=== PATIENT | female | born 1930 | race Caucasian/White ===

== ENCOUNTER 2019-04-10 16:56 | Inpatient (IN) ==
--- NOTE | 2019-04-10 17:18 | Emergency Department Note ---
ED Disposition Clinical Impression: Skin tear Pelvic fracture Qualifiers: Encounter type: initial encounter Pelvic bone location: unspecified part of pelvis Fracture type: closed Fracture alignment: displaced Qualified Code(s): S32.9XXA - Fracture of unspecified parts of lumbosacral spine and pelvis, initial encounter for closed fracture Sacral fracture Qualifiers: Encounter type: initial encounter Zone of sacrum fracture: unspecified portion of sacrum Fracture type: closed Qualified Code(s): S32.10XA - Unspecified fracture of sacrum, initial encounter for closed fracture Contusion of left hip Qualifiers: Encounter type: initial encounter Qualified Code(s): S70.02XA - Contusion of left hip, initial encounter Traumatic hematoma of forehead Qualifiers: Encounter type: initial encounter Qualified Code(s): S00.83XA - Contusion of other part of head, initial encounter Disposition: Admitted as Observation Condition on Discharge: Fair Referrals: Wilmar Ibarra MD [Primary Care Provider] - - Critical Care Critical Care Time: No Attestation: On 04/10/19, the high probability of a clinically significant, sudden or life threatening deterioration of the following system(s) required my full and direct attention, intervention and personal management. The time I documented below is in addition to time spent performing reported procedures but includes the following listed in this critical care notation. Medical Decision Making - Jimmy Inquiry Pt receiving controlled substance: Yes Jimmy was queried for this patient: No Reason not queried -: Emergent pt cond-no time Risks and benefits of using a controlled substance: were not discussed with pt by me Vital Signs: 04/10/19 16:57 Temperature 98.3 F Temperature Source Oral Pulse Rate [Right Radial] 67 Respiratory Rate 16 Blood Pressure [Right Arm] 114/73 Blood Pressure Mean [Right Arm] 86 Blood Pressure Source [Right Arm] Automatic Cuff Blood Pressure Position [Right Arm] Sitting 02 Sat by Pulse Oximetry 97 Oxygen Delivery Method Room Air Orders (Tests/Meds): ED MEDICATIONS Discontinued Medications Generic Name Dose Route Start Last Admin Trade Name Freq PRN Reason Stop Dose Admin Morphine Sulfate 1 mg 04/10/19 20:31 Morphine 4mg/Ml Syringe IV 04/10/19 20:32 ONCE ONE Ondansetron HCl 4 mg 04/10/19 20:31 Zofran 4mg/2ml Vial IV 04/10/19 20:32 ONCE ONE ORDERS Category Date Time Status CT hip LT wo con Stat Cat Scan 04/10/19 18:16 Taken XR chest portable Stat Exams 04/10/19 20:31 Ordered Complete Blood Count Auto Diff Stat Lab 04/10/19 20:30 Ordered Comprehensive Metabolic Panel Stat Lab 04/10/19 20:30 Ordered Urinalysis and Microscopic Stat Lab 04/10/19 20:30 Ordered - Radiology Data #1 Image(s): Hip Image Reviewed: Yes I reviewed the patient's radiology image Preliminary Findings: Normal/NAD - CT Data CT Scan: Head, C-Spine Time Received: 18:[address] Reviewed: Yes: I have viewed the radiologist's interpretation Findings Narrative: Head: FINDINGS: No midline shift, mass effect, intracranial hemorrhage, hydrocephalus, or extra-axial fluid collection is evident. The basilar cisterns are prominent. 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 The sylvian fissures and cortical sulci are prominent. There are mild diffuse periventricular hypodensities consistent with chronic ischemic white matter changes. The base of skull is normal. The bony calvarium appears intact with evidence of mild hyperostosis frontalis interna. There is a focal hematoma of the scalp left frontal parietal region measuring 3.6 by 1.1 cm. The bony calvarium is intact with no evidence of skull fracture. IMPRESSION: Findings are prominent but likely age-appropriate cortical atrophy along with mild chronic ischemic white matter changes, focal scalp hematoma is noted, no acute intracranial pathology identified. Dictated by: Dr. Jg Del Angel MD 04/10/2019 17:[address] Jg Del Angel MD in [place] 04/10/2019 17:30 c-spine: FINDINGS: There is straightening of normal curvature suggesting muscle spasm. There is disc space narrowing at the C4-5, C5-6 and C6-7 levels. There is no acute fracture or subluxation. There is mild narrowing of the neural foramina bilaterally at the C5-6 level secondary to a degenerate changes. 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 The prevertebral soft tissues are normal. IMPRESSION: Possible muscle spasm, multilevel degenerate changes mid cervical spine, no acute pathology noted Dictated by: Dr. Jg Del Angel MD 04/10/2019 17:[address] Jg Del Angel MD in [place] 04/10/2019 17:35 - Physician Consults Physician Consulted: Dr. Wills Time: 20:20 Reason -: Admission Comment/Response: Agrees to admit the patient to the hospital. We discussed the patient's clinical information, including history, exam, laboratory and radiology results and ED course. Per hospital procedure, I will write temporary bridge inpatient orders on the patient. Specific orders requested by the admitting physician: Morphine 1 mg every 4 hours as needed, orthopedic consultation for the morning. General Adult HPI - General Chief complaint: Fall Stated complaint: FALL Time Seen by Provider: 04/10/19 17:18 Mode of Arrival: EMS Limitations: No Limitations Description of Symptoms (Recalled from ER Triage Doc. by RN): PT FELL ON THE LAST STEP GOING INTO THE BASEMENT AT HOME. PT PRESENTS WITH A KNOT TO LT SIDE OF HEAD, SKIN TEAR TO LT ELBOW, AND C/O LT HIP PAIN. PT IS ABLE TO WEAR WEIGHT ON LT LEG AND MOVE HIP. PT DENIES FUNG, LOC, DIZZINESS, N/V - History of Present Illness HPI narrative: Patient says she fell on the last step going down into the basement. Landed on her left side. She has a bump on her head. Denies any pain in that area or headache. Denies loss of consciousness. Denies neck pain. Has a skin tear on her left elbow which has Steri-Strips on it. She has no pain in her elbow and can move it without discomfort. She has left hip pain and says she could not bear weight at home. Pain is in her groin. Denies any injury to chest or abdomen or back. - Related Data Home Medications Medication Instructions Recorded Confirmed lisinopril 20 mg tablet 20 mg PO DAILY tab 09/01/17 04/10/19 Nebivolol HCl [Bystolic] 10 mg PO DAILY 04/10/19 04/10/19 Allergies Allergy/AdvReac Type Severity Reaction Status Date / Time No Known Allergies Allergy Verified 04/08/18 11:25 [facility] History - Hepatitis A Screen Drug use history?: No High risk sexual behaviors?: No History of sexually transmitted infection?: No Currently employed?: No Childcare worker?: No Do you have indoor plumbing?: Yes Do you have electricity?: Yes Attestation statement:: This patient has been screened for Hepatitis A risk factors. I have reviewed the patient's past medical history: Yes Medical History: Reports:: Hypertension, Internal Pacemaker Denies:: Cancer, Diabetes Mellitus Type 1, Diabetes Mellitus Type 2, MRSA Other Medical History: Reports: Cataracts Laterality Cases: Bilateral: Tonsillectomy Other Surgeries: Yes: Cholecystectomy, Pacemaker Amputation: No Fractures: No Comment: cholecystectomy - Social History Smoking Status: Never smoker Alcohol Intake: never Alcohol Intake Frequency:: other Occupational Status: retired Family Hx:: No significant family history ROS Obtained: Yes Systems reviewed as appropriate & no additional complaints - Eyes Eyes: Denies change in vision - Cardiovascular Cardiovascular: Denies chest pain - Respiratory Respiratory: No dyspnea - Gastrointestinal Gastrointestingal: Denies: abdominal pain, vomiting - Musculoskeletal Musculoskeletal: Reports as per HPI, Reports joint pain, Denies back pain, Denies neck pain, Denies numbness - Neurologic Neurologic: Denies headache(s), Denies numbness, Denies weakness Physical Exam - General General appearance: alert, in no apparent distress - Expanded Head Exam Head exam physical: Present: hematoma (Left frontal). Absent: laceration, Fan's sign, CSF rhinorrhea - Eye Eye exam: Present: normal appearance, PERRL, EOMI - ENT ENT exam: Present: TM's normal bilaterally - Neck Neck exam: Present: normal inspection, full ROM, trachea midline. Absent: tenderness - Chest Chest inspection: Present: normal inspection, symmetric chest wall rise. Absent: tenderness - Respiratory Respiratory exam: Present: normal lung sounds bilaterally. Absent: respiratory distress - Cardiovascular Cardiovascular exam: Present: regular rate, normal rhythm, normal heart sounds - Abdominal Exam Abdominal exam: Present: soft, normal bowel sounds. Absent: distention, tenderness - Extremities Exam Extremities exam: Present: normal capillary refill - Neurological Exam Neurological exam: Present: alert, oriented X3, CN II-XII intact. Absent: motor sensory deficit - Psychiatric Psychiatric exam: Present: normal affect, normal mood - Skin Skin exam: Present: warm, dry - Other Other exam information: Skin tear left elbow which has Steri-Strips in place and is well approximated without active bleeding. Normal range of motion of left elbow without pain. No deformity. Normal neurovascular status. Redness of left hip laterally and in the inguinal area. No deformity, shortening, malrotation. Good range of motion. Appears to have mild pain with internal and external rotation. Distal neurovascular status intact.
[2019-04-10 20:35] LABS: Microscopic, Urine URINE MICROSCOPIC (MICROSCOPIC)
[2019-04-10 20:40] LABS: Appearance,Urine CLEAR (Clear); Bilirubin,Urine Negative (Negative); Blood, Urine Negative (Negative); Color,Urine YELLOW (Yellow); Glucose,Urine (UA) Negative (Negative); Ketones,Urine Negative (Negative); Leukocyte Esterase,Urine Negative (Negative); Protein,Urine Negative (Negative); Specific Gravity, Urine 1.015 (1.005-1.030); Urobilinogen,Urine 0.2 EU/dl (0.2)
[2019-04-10 20:41] LABS: Amorphous Sediment,Urine Trace /lpf; Squamous Epithelial Cell,Urine Occasional #/hpf (0-5)
[2019-04-10 21:20] LABS: Basophils % 0.2 % (0.1-2.0); Eosinophils % 0.2 % (0.1-12.0); Hematocrit 31.7 % (37.0-47.0); Hemoglobin 10.2 g/dL (12.2-16.2); Lymphocytes # 0.8 K/mm3 (0.7-4.5); Lymphocytes % 7.5 % (10-50); Mean Corpuscular Volume 97.3 fl (81-99); Monocytes # 0.6 K/mm3 (0.1-1.0); Monocytes % 5.9 % (1.7-9.3); Neutrophils # 8.5 K/mm3 (1.8-7.8); Neutrophils % 86.2 % (37.0-80.0); Platelet Count 178 K/mm3 (142-424); Red Blood Count 3.26 M/mm3 (4.20-5.40); Red Cell Distribution Width 13.5 % (11.5-17.5); White Blood Count 9.9 K/mm3 (4.8-10.8)
[2019-04-10 21:36] LABS: Anion Gap 12.1 mEq/L (5-15); Bilirubin,Total 0.4 mg/dL (0.2-1.0); Calcium 8.6 mg/dL (8.5-10.1)
[2019-04-10 21:40] LABS: Lymphocytes % 8 % (10-50); Neutrophils % 86 % (42-76); RBC Morphology Normal; Total Cells Counted 100
--- NOTE | 2019-04-11 07:09 | Pharmacy Consult Notes ---
[facility] Pharmacy VTE Monitoring - Patient Demographics Admission date: 04/10/19 Report Date: 04/11/19 Time: 07:08 Allergies/Adverse Reactions: Patient Allergies No Known Allergies Allergy (Verified 04/10/19 22:37) Height: 1.63 m Weight: 51.001 kg Patient Problems: Current Active Problems Pelvic fracture (Acute) Sacral fracture (Acute) Contusion of left hip (Acute) Traumatic hematoma of forehead (Acute) Skin tear (Acute) - VTE Risk Labs: VTE Related Lab Results Hgb 10.2 g/dL (12.2-16.2) L 04/10/19 21:05 Hct 31.7 % (37.0-47.0) L 04/10/19 21:05 Plt Count 178 K/mm3 (142-424) 04/10/19 21:05 BUN 37 mg/dL (7-18) H 04/10/19 21:05 Creatinine 1.26 mg/dL (0.55-1.02) H 04/10/19 21:05 Estimated Creat Clear 25 mL/min (50-200) 04/10/19 21:05 Was VTE Risk Assessment Performed: Yes VTE Score: 5 VTE Risk Level: Low Risk - Prophylaxis VTE Prophylaxis Ordered?: Yes Types of VTE Prophylaxis: TEDS Knee High Location of Applied Device: Bilateral Lower Extremeties - VTE Diagnosis Confirmed Treatment or plan recommended: Continue Current Treatment
--- NOTE | 2019-04-11 08:25 | History & Physical Report ---
*Admission Date: 04/10/19 *Chief complaint: Fall with left hip pain *History of present illness: 89-year-old white female who suffers from hypertension and has a previous history of falls fell on the day of admission at her home and struck her left elbow, left hip and left side of her head. Brought to the emergency department. Head CT was negative, mental status was preserved, elbow was unremarkable on exam but preliminary x-rays and CT of the hip shows comminuted pelvic fracture and evidence of sacral fracture. Admitted to hospital for pain control, orthopedic consultation and physical therapy evaluation. This morning she feels good except for cramps across her anterior lower pelvis. [facility] History I have reviewed the patient's past medical history: Yes Medical History: Reports:: Arrhythmia (sss), Hypertension, Internal Pacemaker Denies:: Cancer, Diabetes Mellitus Type 1, Diabetes Mellitus Type 2, MRSA *Have you ever received a pneumonia vaccine?: No *Have you received a flu vaccine this season?: No Other Medical History: Reports: Cataracts Laterality Cases: Bilateral: Tonsillectomy Other Surgeries: Yes: Appendectomy, Cholecystectomy, Pacemaker Amputation: No Fractures: No - *Social History Educational Level: Completed High School Smoking Status: Never smoker Alcohol Intake: never Alcohol Intake Frequency:: other *Occupational Status:: retired Housing: house *Travel in the last 8 weeks: Inside the [place] Family Hx:: No significant family history Review of Systems - Review of Systems Review of systems:: pertinent systems reviewed and negative unless documented below See HPI for details of ROS, Otherwise 10 point review of systems negative - *Neurologic Denies headache(s), Denies numbness, Denies weakness Meds Home Medications Medication Instructions Recorded Confirmed Type lisinopril 20 mg tablet 20 mg PO DAILY tab 09/01/17 04/10/19 History Nebivolol HCl [Bystolic] 10 mg PO HS 04/10/19 04/10/19 History Allergies Allergy/AdvReac Type Severity Reaction Status Date / Time No Known Allergies Allergy Verified 04/10/19 22:37 Exam Vital signs and Labs for Last 24 Hours: Temp Pulse Resp BP Pulse Ox 98.6 F 55 L 20 153/62 H 94 L 04/11/19 08:00 04/11/19 08:00 04/11/19 08:00 04/11/19 08:00 04/11/19 08:00 Laboratory Results - last 24 hr 12/01/19 20:10: Urine Color Yellow, Urine Appearance Clear, Urine pH 7.0, Ur Specific [place] 1.015, Urine Protein Negative, Urine Glucose (UA) Negative, Urine Ketones Negative, Urine Blood Negative, Urine Nitrate Negative, Urine Bilirubin Negative, Urine Urobilinogen 0.2, Ur Leukocyte Esterase Negative, Urine WBC 3-5, Ur Squamous Epith Cells Occasional, Amorphous Sediment Trace 04/10/19 21:05: WBC 9.9, RBC 3.26 L, Hgb 10.2 L, Hct 31.7 L, MCV 97.3, MCH 31.1, MCHC 32.0, RDW 13.5, Plt Count 178, MPV 9.0, Neut % (Auto) 86.2 H, Lymph % (Auto) 7.5 L, [place] % (Auto) 5.9, Eos % (Auto) 0.2, Baso % (Auto) 0.2, Neut # (Auto) 8.5 H, Lymph # (Auto) 0.8, [place] # (Auto) 0.6, Eos # (Auto) 0.0, Baso # (Auto) 0.0, Total Counted 100, Neutrophils % (Manual) 86 H, Band Neutrophils % 6.0, Lymphocytes % (Manual) 8 L, Platelet Estimate Normal, RBC Morphology Normal 04/10/19 21:05: Sodium 139, Potassium 4.1, Chloride 105, Carbon Dioxide 26, Anion Gap 12.1, BUN 37 H, Creatinine 1.26 H, Estimated Creat Clear 25, Estimated GFR 40 L, Est GFR ( Amer) 48 L, Glucose 151 H, Calcium 8.6, Total Bilirubin 0.4, AST 31, ALT 26, Alkaline Phosphatase 75, Total Protein 6.0 L, Albumin 3.0 L, Globulin 3.0, Albumin/Globulin Ratio 1.0 L I & O for Last 24 hours: Intake & Output 04/08/19 04/09/19 04/10/19 04/11/19 11:59 11:59 11:59 11:59 Intake Total 852 / 852 Balance 852 / 852 Weight 112 lb 7 oz Narrative: Patient is pleasant, alert, oriented x3. Has contusion and bruising on the left forehead on the lateral parietal area. Cranial nerves are intact. Oropharynx clear. No JVD. Otherwise ENT exam clear. Lungs are clear, heart rate regular, pacemaker site in good position. Abdomen soft. Extremities warm and well-perfused, no distal edema. Able to flex hips well but rotation causes pain. Abdomen is soft and nontender. Peripheral neurologic exam nonfocal Assessment and Plan (1) Essential hypertension Current visit: Yes Status: Acute Category: Medical Code(s): I10 - Essential (primary) hypertension (2) Contusion of left hip Current visit: Yes Status: Acute Qualifiers: Encounter type: initial encounter Qualified Code(s): S70.02XA - Contusion of left hip, initial encounter Category: Medical Code(s): S70.02XA - Contusion of left hip, initial encounter (3) Pelvic fracture Current visit: Yes Status: Acute Qualifiers: Encounter type: initial encounter Pelvic bone location: unspecified part of pelvis Fracture type: closed Fracture alignment: displaced Qualified Code(s): S32.9XXA - Fracture of unspecified parts of lumbosacral spine and pelvis, initial encounter for closed fracture Category: Medical Code(s): S32.9XXA - Fracture of unspecified parts of lumbosacral spine and pelvis, initial encounter for closed fracture - Assessment and plan all Dx Assessment and Plan for all problems:: Plan for orthopedic consultation. I would anticipate nonoperative intervention and need for long-term care placement for nonweightbearing status and progressiv e PT. Continue blood pressure management.
--- NOTE | 2019-04-11 10:12 | Electrocardiograph Report ---
APPROVED REPORT Exam: Resting ECG HR:75 bpm ECG Measurements Heart Rate 75 AXES GA 224 P QRSd 70 QRS 219 QT 414 T12 QTc 462 <Conclusion> Suspect arm lead reversal, interpretation assumes no reversal Demand pacemaker, interpretation is based on intrinsic rhythm Sinus rhythm with 1st degree AV block with fusion complexes Low voltage QRS RSR' or QR pattern in V1 suggests right ventricular conduction delay Lateral infarct, age undetermined Inferior infarct, age undetermined Abnormal ECG Electronically signed by : Chivo Wills, 04/11/2019 10:12:06
--- NOTE | 2019-04-11 16:18 | Consult Report ---
*Admission Date: 04/10/19 *Reason for consult:: L hip pain *History of present illness: Mrs. Vale is a very pleasant 89 year old female admitted overnight after a fall at home. She missed the last stair going into the basement and fell directly onto her left side, striking her hip, elbow and head on the ground. She sustained hematomas to the left side of the forehead and left elbow, with a skin tear over the elbow. The skin tear was repaired with steri-strips in the ER and a clean dressing applied. XR and subsequent CT scan showed a superior pubic ramus fracture and small non-displaced sacral fracture on the left; the sacral fracture is very small and near the margin of the SI joint. The patient reports soreness in the left hip, well-managed with pain medication. Denies LOC during the injury, but does endorse midline cervical spine pain; CT of the cervical spine was negative for fracture. Denies pain, numbness or tingling radiating down either arm. Review of Systems - Review of Systems Review of systems:: pertinent systems reviewed and negative unless documented below - *Neurologic Denies headache(s), Denies numbness, Denies weakness [facility] History I have reviewed the patient's past medical history: Yes Medical History: Reports:: Arrhythmia (sss), Hypertension, Internal Pacemaker Denies:: Cancer, Diabetes Mellitus Type 1, Diabetes Mellitus Type 2, MRSA *Have you ever received a pneumonia vaccine?: No *Have you received a flu vaccine this season?: No Other Medical History: Reports: Cataracts Laterality Cases: Bilateral: Tonsillectomy Other Surgeries: Yes: Appendectomy, Cholecystectomy, Pacemaker Amputation: No Fractures: No - *Social History Educational Level: Completed High School Smoking Status: Never smoker Alcohol Intake: never Alcohol Intake Frequency:: other *Occupational Status:: retired Housing: house *Travel in the last 8 weeks: Inside the [facility] Family Hx:: No significant family history Meds Home Medications Medication Instructions Recorded Confirmed Type lisinopril 20 mg tablet 20 mg PO DAILY tab 09/01/17 04/10/19 History Nebivolol HCl [Bystolic] 10 mg PO HS 04/10/19 04/10/19 History Allergies Allergy/AdvReac Type Severity Reaction Status Date / Time No Known Allergies Allergy Verified 04/10/19 22:37 Exam Vital signs and Labs for Last 24 Hours: Temp Pulse Resp BP Pulse Ox 98.6 F 55 L 20 153/62 H 94 L 04/11/19 08:00 04/11/19 08:00 04/11/19 08:00 04/11/19 08:00 04/11/19 08:00 Laboratory Results - last 24 hr 04/10/19 20:10: Urine Color Yellow, Urine Appearance Clear, Urine pH 7.0, Ur Specific [place] 1.015, Urine Protein Negative, Urine Glucose (UA) Negative, Urine Ketones Negative, Urine Blood Negative, Urine Nitrate Negative, Urine Bilirubin Negative, Urine Urobilinogen 0.2, Ur Leukocyte Esterase Negative, Urine WBC 3-5, Ur Squamous Epith Cells Occasional, Amorphous Sediment Trace 04/10/19 21:05: WBC 9.9, RBC 3.26 L, Hgb 10.2 L, Hct 31.7 L, MCV 97.3, MCH 31.1, MCHC 32.0, RDW 13.5, Plt Count 178, MPV 9.0, Neut % (Auto) 86.2 H, Lymph % (Auto) 7.5 L, [place] % (Auto) 5.9, Eos % (Auto) 0.2, Baso % (Auto) 0.2, Neut # (Auto) 8.5 H, Lymph # (Auto) 0.8, [place] # (Auto) 0.6, Eos # (Auto) 0.0, Baso # (Auto) 0.0, Total Counted 100, Neutrophils % (Manual) 86 H, Band Neutrophils % 6.0, Lymphocytes % (Manual) 8 L, Platelet Estimate Normal, RBC Morphology Normal 04/10/19 21:05: Sodium 139, Potassium 4.1, Chloride 105, Carbon Dioxide 26, Anion Gap 12.1, BUN 37 H, Creatinine 1.26 H, Estimated Creat Clear 25, Estimated GFR 40 L, Est GFR ( Amer) 48 L, Glucose 151 H, Calcium 8.6, Total Bilirubin 0.4, AST 31, ALT 26, Alkaline Phosphatase 75, Total Protein 6.0 L, Albumin 3.0 L, Globulin 3.0, Albumin/Globulin Ratio 1.0 L I & O for Last 24 hours: Intake & Output 04/09/19 04/10/19 04/11/19 04/12/19 11:59 11:59 11:59 11:59 Intake Total 972 / 972 120 / 120 Output Total 100 / 100 200 / 200 Balance 872 / 872 -80 / -80 Weight 112 lb 7.007 oz - Constitutional no acute distress, average body habitus - *Routine HEENT Exam Head: Present: hematoma, scalp tenderness Eye: Present: EOMI ENT: Present: mucous membranes moist - *Routine Neck Exam Present: supple, full ROM, tenderness - *Routine Respiratory Exam Present: CTA bilaterally - *Routine Cardiovascular Exam Present: RRR - *Routine Abdominal Exam Present: soft. Absent: tenderness - *Routine Extremities Exam Comments: L elbow with ecchymosis and superficial skin tearing, repaired with steri-strips mild midline tenderness over spinous processes cervical spine but FROM no tenderness over L shoulder/elbow/wrist/hand FROM L hip with mild discomfort; logroll produces mild pain in groin mild tenderness over pubic symphysis/rami LLE no crepitus/catching L hip with ROM mild tenderness over L SI joint SILT distally LLE in all distributions +DF/PF/EHL LLE L calf soft, non-tender palpable pedal pulses LLE, foot warm - *Routine Skin Exam Present: warm, ecchymosis - *Routine Neurological Exam Present: alert, oriented X3, moving all extremities, normal tone, hearing grossly intact, normal speech. Absent: sensory deficit, motor deficit, altered mental status - Routine Psychiatric Exam Present: normal affect Results - Labs Result Diagrams: 04/10/19 21:05 04/10/19 21:05 Labs: Abnormal lab results 04/10/19 04/10/19 Range/Units 21:05 21:05 RBC 3.26 L (4.20-5.40) M/mm3 Hgb 10.2 L (12.2-16.2) g/dL Hct 31.7 L (37.0-47.0) % Neut % (Auto) 86.2 H (37.0-80.0) % Lymph % (Auto) 7.5 L (10-50) % Neut # (Auto) 8.5 H (1.8-7.8) K/mm3 Neutrophils % (Manual) 86 H (42-76) % Lymphocytes % (Manual) 8 L (10-50) % BUN 37 H (7-18) mg/dL Creatinine 1.26 H (0.55-1.02) mg/dL Estimated GFR 40 L (>60) ml/min Est GFR ( Amer) 48 L (>60) ML/MIN Glucose 151 H (74-106) mg/dL Total Protein 6.0 L (6.4-8.2) gm/dL Albumin 3.0 L (3.4-5.0) gm/dL Albumin/Globulin Ratio 1.0 L (1.1-1.8) H & H 04/10/19 Range/Units 21:05 Hgb 10.2 L (12.2-16.2) g/dL Hct 31.7 L (37.0-47.0) % All other labs normal. - Diagnostic results Hip x-ray: image reviewed (L superior pubic ramus fx) Hip CT: image reviewed (L superior pubic ramus fx + non-displaced sacral fracture ) Assessment and Plan (1) Essential hypertension Current visit: Yes Status: Acute Category: Medical Code(s): I10 - Essential (primary) hypertension (2) Contusion of left hip Current visit: Yes Status: Acute Qualifiers: Encounter type: initial encounter Qualified Code(s): S70.02XA - Contusion of left hip, initial encounter Category: Medical Code(s): S70.02XA - Contusion of left hip, initial encounter (3) Pelvic fracture Current visit: Yes Status: Acute Qualifiers: Encounter type: initial encounter Pelvic bone location: unspecified part of pelvis Fracture type: closed Fracture alignment: displaced Qualified Code(s): S32.9XXA - Fracture of unspecified parts of lumbosacral spine and pelvis, initial encounter for closed fracture Category: Medical Code(s): S32.9XXA - Fracture of unspecified parts of lumbosacral spine and pelvis, initial encounter for closed fracture - Assessment and plan all Dx Assessment and Plan for all problems:: 89yo F with L superior pubic ramus + non-displaced sacral fractures -- no surgical intervention indicated -- WBAT LLE, mobilize with assistance; may be OOB as tolerated -- PT/OT eval -- may benefit from SNF placement for short-term rehab to advance to baseline
[2019-04-12 06:52] LABS: Basophils % 0.4 % (0.1-2.0); Eosinophils # 0.2 K/mm3 (0.0-0.4); Eosinophils % 3.9 % (0.1-12.0); Hematocrit 27.2 % (37.0-47.0); Hemoglobin 8.6 g/dL (12.2-16.2); Lymphocytes # 1.5 K/mm3 (0.7-4.5); Lymphocytes % 25.6 % (10-50); Mean Corpuscular HGB Conc 31.7 g/dL (31.8-35.4); Mean Corpuscular Volume 97.5 fl (81-99); Mean Platelet Volume 8.7 fl (7.4-10.4); Monocytes # 0.4 K/mm3 (0.1-1.0); Monocytes % 7.1 % (1.7-9.3); Neutrophils # 3.6 K/mm3 (1.8-7.8); Neutrophils % 63.1 % (37.0-80.0); Platelet Count 142 K/mm3 (142-424); Red Blood Count 2.79 M/mm3 (4.20-5.40); Red Cell Distribution Width 13.4 % (11.5-17.5); White Blood Count 5.7 K/mm3 (4.8-10.8)
[2019-04-12 06:53] LABS: Anion Gap 11.4 mEq/L (5-15); Calcium 7.9 mg/dL (8.5-10.1)
--- NOTE | 2019-04-12 08:37 | Progress Note ---
Internal Medicine - PN: Subj *Date: 04/12/19 *Time: 13:57 Interval history: Ms. Vale had uncontrolled A. fib overnight. Able to get her rate controlled with carvedilol and several doses of metoprolol. Denies any chest pain this morning however has had a bump in her troponin. Doing a bedside chair on exam with no acute complaint. Denies any shortness of breath, nausea, vomiting. Does have some pelvic pain related to her fracture that is stable. Able to get up from the bed to the bedside chair with minimal assistance. Exam Vital signs and Labs for Last 24 Hours: Temp Pulse Resp BP Pulse Ox 98.4 F 61 20 131/59 L 97 04/12/19 08:00 04/12/19 08:00 04/12/19 08:00 04/12/19 08:00 04/12/19 08:00 Laboratory Results - last 24 hr 04/11/19 18:52: Troponin I < 0.02 04/11/19 21:52: Troponin I 0.05 04/12/19 06:28: WBC 5.7 D, RBC 2.79 L, Hgb 8.6 L, Hct 27.2 L, MCV 97.5, MCH 30.9, MCHC 31.7 L, RDW 13.4, Plt Count 142, MPV 8.7, Neut % (Auto) 63.1, Lymph % (Auto) 25.6, [place] % (Auto) 7.1, Eos % (Auto) 3.9, Baso % (Auto) 0.4, Neut # (Auto) 3.6, Lymph # (Auto) 1.5, [place] # (Auto) 0.4, Eos # (Auto) 0.2, Baso # (Auto) 0.0 04/12/19 06:28: Sodium 140, Potassium 4.4, Chloride 109 H, Carbon Dioxide 24, An ion Gap 11.4, BUN 32 H, Creatinine 1.20 H, Estimated Creat Clear 26, Estimated GFR 42 L, Est GFR ( Amer) 51 L, Glucose 79, Calcium 7.9 L 04/12/19 06:28: Troponin I 0.89 H I & O for Last 24 hours: Intake & Output 04/09/19 04/10/19 04/11/19 04/12/19 23:59 23:59 23:59 23:59 Intake Total 1212 / 1212 2022 Output Total 300 / 300 Balance 912 / 912 2022 Weight 50.462 kg 51.001 kg 51.001 kg Narrative: Patient is pleasant, alert, oriented x3. Has contusion and bruising on the left forehead on the lateral parietal area. Cranial nerves are intact. Oropharynx clear. No JVD. Otherwise ENT exam clear. Lungs are clear, heart rate regular, pacemaker site in good position. Abdomen soft. Extremities warm and well-perfused, no distal edema. Able to flex hips well but rotation causes pain. Abdomen is soft and nontender. Peripheral neurologic exam nonfocal Assessment and Plan (1) Essential hypertension Current visit: Yes Status: Acute Category: Medical Code(s): I10 - Essential (primary) hypertension (2) Contusion of left hip Current visit: Yes Status: Acute Qualifiers: Encounter type: initial encounter Qualified Code(s): S70.02XA - Contusion of left hip, initial encounter Category: Medical Code(s): S70.02XA - Contusion of left hip, initial encounter (3) Pelvic fracture Current visit: Yes Status: Acute Qualifiers: Encounter type: initial encounter Pelvic bone location: unspecified part of pelvis Fracture type: closed Fracture alignment: displaced Qualified Code(s): S32.9XXA - Fracture of unspecified parts of lumbosacral spine and pelvis, initial encounter for closed fracture Category: Medical Code(s): S32.9XXA - Fracture of unspecified parts of lumbosacral spine and pelvis, initial encounter for closed fracture (4) NSTEMI (non-ST elevated myocardial infarction) Current visit: Yes Status: Acute Category: Medical Code(s): I21.4 - Non-ST elevation (NSTEMI) myocardial infarction A. fib with RVR overnight. Rate controlled this morning. Patient had an elevation in her troponin however no ST elevations. Suspect type II NSTEMI due to supply demand mismatch from her tachycardia. Will monitor troponin today to assess for plateau. Additionally in the setting of chronic kidney disease, will be slow to clear her troponins. Asymptomatic at this time. Continue with aggressive rate control. - Assessment and plan all Dx Assessment and Plan for all problems:: 89-year-old female with pelvic ramus fracture on the left side, NSTEMI type II overnight, hypertension, and tremor (suspected to be due to Parkinson's). Clinically stable this morning. Continues to work with physical therapy. Tolerating regular diet. Monitoring on telemetry. Plan for echocardiogram today due to A. fib and an STEMI. Pending placement for rehab later this week. Continues to require inpatient management. Prognosis fair.
--- NOTE | 2019-04-12 20:38 | Cardiology Report ---
APPROVED REPORT EXAM: Comprehensive 2D, Doppler, and color-flow Echocardiogram [facility] Consultant: Tawanna Sun RVT Ht: 5 ft 4 in Wt: 112lbs BSA: 1.53 BP: 131/59 mmHg Indications: Atrial Fibrillation, Hypertension,Pelvic fx 2D Dimensions LVOT 1.36 cm (M/F) 1.5-2.5 M-Mode Dimensions RVDd 2.24 cm (0.9-2.6)LA Diam 4.60 cm (1.9-4.0) LVDd 3.49 cm (3.5-5.7)Ao Diam 1.80 cm (2.0-3.7) LVDs 1.80 cm (3.5-5.7)AV Cusp 1.30 cm (1.5-2.6) IVSd 1.18 cm (0.6-1.1)PWd 1.11 cm (0.6-1.1) EF (Teich) 80.80% FS 48.40% EDV (Teich) 50.50 mLESV (Teich) 9.70 mL LV Diastology E/A Ratio 0.62 Mitral Valve MV A Velocity 99.00 (40-130 cm/s) Left Ventricle Left atrium is moderately enlarged, left ventricle is normal size, mild concentric left ventricular hypertrophy, visually estimated ejection fraction 55% with no regional wall motion abnormality, there is abnormal septal motion. Grade 1 diastolic dysfunction seen without tissue Doppler evidence of raise left atrial pressure. Right Ventricle Right atrium and right ventricle moderately enlarged with normal contractility, there is a pacemaker lead seen in the right atrium and right ventricle. Aortic Valve Aortic valve is thickened and calcified leaflet continue to display good mobility, there is no aortic stenosis, there is mild aortic insufficiency. Mitral Valve Mitral inflow velocities within normal range, there is no mitral stenosis, there is mild mitral regurgitation. Tricuspid Valve Tricuspid valve leaflets are minimally thickened, there is severe tricuspid regurgitation, calculated right ventricular systolic pressure is 46 mmHg which is moderately elevated. Pulmonic Valve Pulmonic valve is poorly visualized. Great Vessels Aortic root is normal size. Pericardium No significant pericardial effusion noted. Conclusion 1. Biatrial enlargement, normal left ventricular size, mild concentric left ventricular hypertrophy, visually estimated ejection fraction 55% with no regional wall motion abnormality, grade 1 diastolic dysfunction seen without tissue Doppler evidence of raise left atrial pressure. 2. Moderately enlarged right ventricle with normal contractility, pacemaker lead seen right atrium and right ventricle. 3. Thickened and calcified aortic valve without aortic stenosis, there is mild aortic insufficiency. 4. Mild mitral and severe tricuspid regurgitation, calculated right ventricular systolic pressure is 46 mmHg which is moderately elevated. 5. No significant pericardial effusion noted. Electronically signed by : Ronald Strong, 04/12/2019 20:37:21
--- NOTE | 2019-04-13 08:13 | Progress Note ---
Internal Medicine - PN: Subj *Date: 04/13/19 *Time: 08:11 Interval history: Overall patient rested well. Had a little bit of pelvic pain last night. This was amenable to heating pad. No further chest pain. No rapid heart rates through the night Exam Vital signs and Labs for Last 24 Hours: Temp Pulse Resp BP Pulse Ox 98.7 F 67 16 147/64 H 94 L 04/13/19 03:49 04/13/19 03:49 04/13/19 03:49 04/13/19 03:49 04/13/19 03:49 Laboratory Results - last 24 hr 04/12/19 14:30: Troponin I 0.58 H I & O for Last 24 hours: Intake & Output 04/10/19 04/11/19 04/12/19 04/13/19 11:59 11:59 11:59 11:59 Intake Total 972 / 972 2263 / 2263 600 / 600 Output Total 100 / 100 200 / 200 400 / 400 Balance 872 / 872 2063 / 2063 200 / 200 Weight 112 lb 7.007 oz 112 lb 7 oz 115 lb 7 oz Narrative: Patient is pleasant, talkative, heart rate regular in the 60s. Blood pressure acceptable. Extremities are warm and well-perfused. Patient is alert, oriented and pleasant. No cranial nerve deficits. Able to move extremities well. ENT exam clear. Abdomen soft nontender. Assessment and Plan (1) Essential hypertension Current visit: Yes Status: Acute Category: Medical Code(s): I10 - Essential (primary) hypertension (2) Contusion of left hip Current visit: Yes Status: Acute Qualifiers: Encounter type: initial encounter Qualified Code(s): S70.02XA - Contusion of left hip, initial encounter Category: Medical Code(s): S70.02XA - Contusion of left hip, initial encounter (3) Pelvic fracture Current visit: Yes Status: Acute Qualifiers: Encounter type: initial encounter Pelvic bone location: unspecified part of pelvis Fracture type: closed Fracture alignment: displaced Qualified Code(s): S32.9XXA - Fracture of unspecified parts of lumbosacral spine and pelvis, initial encounter for closed fracture Category: Medical Code(s): S32.9XXA - Fracture of unspecified parts of lumbosacral spine and pelvis, initial encounter for closed fracture (4) NSTEMI (non-ST elevated myocardial infarction) Current visit: Yes Status: Acute Category: Medical Code(s): I21.4 - Non-ST elevation (NSTEMI) myocardial infarction - Assessment and plan all Dx Assessment and Plan for all problems:: Non-STEMI noted over the past 24 hours. Probably from rate effect. No evidence for need for intervention. Troponins are downtrending. Continue PT. Plan for LTAC placement. Rate controlled. Continue current therapy.
--- NOTE | 2019-04-13 22:13 | Discharge Summary ---
General - General Admission date:: 04/10/19 Discharge date: 04/14/19 HPI HPI: 89-year-old white female who suffers from hypertension and has a previous history of falls fell on the day of admission at her home and struck her left elbow, left hip and left side of her head. Brought to the emergency department. Head CT was negative, mental status was preserved, elbow was unremarkable on exam but preliminary x-rays and CT of the hip shows comminuted pelvic fracture and evidence of sacral fracture. Admitted to hospital for pain control, orthopedic consultation and physical therapy evaluation. This morning she feels good except for cramps across her anterior lower pelvis. Hospital Course Hospital Course: Ms. Ford was admitted after a fall at home. Found to have pubic ramus fracture. Assessed by physical therapy and recommended placement in senior living for continued rehab needs. While admitted developed A. fib with RVR and an NSTEMI type II due to supply demand mismatch. Adjustments were made to her beta-blockade with good control of her heart rate and improvement in her symptoms. She remained hemodynamically stable for the last 2 days of her admission. Able to ambulate to bedside commode with assistance. Tolerating good p.o. intake. Remains afebrile, denies shortness of breath, chest pain, nausea, vomiting. Medically stable for discharge to correction for further treatment Objective Vital signs: Temp Pulse Resp BP Pulse Ox 99.0 F 61 16 138/57 L 96 04/13/19 20:00 04/13/19 20:00 04/13/19 20:00 04/13/19 20:00 04/13/19 20:00 Narrative: Patient is pleasant, talkative, heart rate regular in the 60s. Blood pressure stable Extremities are warm and well-perfused. Patient is alert, oriented and pleasant. NAD on Room air No cranial nerve deficits. Able to move extremities well. ENT exam clear, MMM Abdomen soft nontender. LCTAB Bilaterally, no crackles or rhonchi DS: Diagnosis - Discharge Diagnosis (1) Essential hypertension Status: Chronic (2) Contusion of left hip Status: Acute (3) Pelvic fracture Status: Acute (4) NSTEMI (non-ST elevated myocardial infarction) Status: Resolved (5) Acute on chronic anemia Status: Acute Problem details: Macrocytic anemia chronic. Suspect decrease in acute setting due to pelvic fracture and volume resuscitation as there is no occult blood loss or bleeding. Discharge Plan - Patient Discharge Instructions ACTIVITY: Continue current activity DIET: continue same diet Additional Instructions: WBAT LLE, continue physical therapy at [facility] Patient Instructions: Anemia: How Food and Vitamins Can Help, DI for Pelvic Fracture - Follow up Plan Follow up with: Mandy Gould MD [Physician] - 1 month (3-4 weeks; will need XR prior to visit call [phone] to schedule appointment ) Disposition: Xfer [facility] Home Medications: Home Medications Medication Instructions Recorded Confirmed Type lisinopril 20 mg tablet 20 mg PO DAILY tab 09/01/17 04/10/19 History Nebivolol HCl [Bystolic] 10 mg PO HS 04/10/19 04/10/19 History carvediloL [Coreg 12.5mg 12.5 mg PO BID 30 Days #60 tab 04/13/19 Rx Tablet] Primidone [Mysoline] 50 mg PO HS 30 Days #30 tab 04/14/19 Rx Prescriptions/Medication Reconciliation: New Primidone [Mysoline] 50 mg PO HS 30 Days #30 tab Acetaminophen [Acetaminophen 325mg tab] 650 mg PO Q4HP PRN tablet PRN Reason: As Needed For Fever Or Pain carvediloL [Coreg 12.5mg Tablet] 12.5 mg PO BID 30 Days #60 tab Continued lisinopril 20 mg tablet 20 mg PO DAILY tab Discontinued Nebivolol HCl [Bystolic] 10 mg PO HS - Problem Reconciliation Problems Reviewed?: Yes
--- NOTE | 2019-04-15 16:42 | Electrocardiograph Report ---
APPROVED REPORT Exam: Resting ECG HR:63 bpm ECG Measurements Heart Rate 63 AXES AK 144 P -12 QRSd 82 QRS -13 QT 410 T3 QTc 419 <Conclusion> Electronic atrial pacemaker Minimal voltage criteria for LVH, may be normal variant Borderline ECG Electronically signed by : Chivo Wills, 04/15/2019 16:41:57
--- NOTE | 2019-04-15 16:44 | Electrocardiograph Report ---
APPROVED REPORT Exam: Resting ECG HR:129 bpm ECG Measurements Heart Rate 129 AXES QRSd 96 QRS -35 QT 300 T138 QTc 439 <Conclusion> Atrial fibrillation with rapid ventricular response with premature ventricular or aberrantly conducted complexes Left axis deviation Minimal voltage criteria for LVH, may be normal variant Inferior infarct, age undetermined Anterolateral infarct, age undetermined Abnormal ECG Electronically signed by : Chivo Wills, 04/15/2019 16:43:38
== END 2019-04-14 10:31 | disposition home or self-care (01) | DRG 535 ==
LOC: ER 16:56 → 2ND 16:56 → OBSVTOIN 22:15 → 2ND 22:16
PROVIDERS: ADMIT Internal Medicine Adolescent Medicine; ATTEND Internal Medicine Adolescent Medicine
DX: I21.A1 Myocardial infarction type 2; W10.8XXA Fall (on) (from) other stairs and steps, initial encounter; I10 Essential (primary) hypertension; D53.9 Nutritional anemia, unspecified; S70.02XA Contusion of left hip, initial encounter; Y92.018 Other place in single-family (private) house as the place of occurrence of the external cause; I47.1 Supraventricular tachycardia; S32.592A Other specified fracture of left pubis, initial encounter for closed fracture; S00.83XA Contusion of other part of head, initial encounter; S32.10XA Unspecified fracture of sacrum, initial encounter for closed fracture; I48.91 Unspecified atrial fibrillation; Z95.0 Presence of cardiac pacemaker